=== PATIENT | male | born 1980 | race African-American/Black ===

== ENCOUNTER 2024-06-06 16:29 | Emergency (ER) | payer OTHER ==
[2024-06-06 16:45] VITALS: BP 126/82; PULSE 55; RESP 18; TEMP 98.2; BMI 26.4
[2024-06-06] MEDS ORDERED: IBUPROFEN 400 MG TABLET (FP) PO ONE (18:38)
[2024-06-06] MEDS ORDERED: CEPHALEXIN MONOHYDRATE 500 MG CAPSULE (UD) ONE (18:38)
[2024-06-06] MEDS: CEPHALEXIN MONOHYDRATE 500 MG CAPSULE (UD) PO ONE (18:41)
[2024-06-06] MEDS: IBUPROFEN 400 MG TABLET (FP) PO ONE (18:41)
[2024-06-06 19:39] LABS: HIV INTERPRETATION NEGATIVE (NEGATIVE)
== END 2024-06-06 18:55 | disposition home or self-care (01) ==
LOC: JERFT 16:29
DX: L03.011 Cellulitis of right finger (principal)
CPT/HCPCS: 36415; 86803; 87389; 99283-25